=== PATIENT | female | born 1980 | race Caucasian/White ===

== ENCOUNTER 2021-08-14 09:40 | Emergency (ER) | payer OTHER ==
[~2021-08-14] VITALS: Ht 167.6 cm; Wt 77.3 kg
[2021-08-14 10:13] VITALS: BP 149/86
== END 2021-08-14 11:55 | disposition home or self-care (01) ==
LOC: ER 09:41
DX: U07.1 COVID-19 (principal); J30.2 Other seasonal allergic rhinitis
CPT/HCPCS: 87811; 99283